=== PATIENT | male | born 1980 | race Caucasian/White ===

== ENCOUNTER 2017-09-06 13:40 | Emergency (ER) | payer MEDICARE, SELFPAY ==
[2017-09-06 13:42] VITALS: BP 164/111; PULSE 111; RESP 18; TEMP 36.9; O2SAT 98; BMI 38.1
--- NOTE | 2017-09-06 14:53 | ED.VISSUMM ---
- ER Visit Summary Date of Service: 09/06/17 Chief Complaint: Right arm pain History of Present Illness: The patient is a 37 M who states that on August 11 he woke up with right arm numbness. He went to [facility] was told that he had this possible C7 fracture was placed in a c-collar. 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 He went back to [facility] and they were close. 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 He had seen neurosurgery and went to another follow-up appointment today where he was told that that surgeon will not see him and he needs to find another neurosurgical group. He states he was given no explanation for why this occurred. He left that appointment and came right to [facility]. He lives in [place]. He states he does not want to go anywhere in [place] or [place]. He states that he is also out of his gabapentin which was not working anyway. He states that he cannot take anti-inflammatories tramadol or aspirin. He cannot take Toradol. Physical Examination: Afebrile vital signs are stable Gen: Well-nourished well-developed Head: Normocephalic atraumatic Eyes: Perrl EOMI ENT: TMs clear no rhinorrhea moist mucous membranes Neck: Supple no lymphadenopathy no JVD planes of tenderness to palpation in the paraspinal musculature CVS: Regular rate rhythm no murmurs normal S1-S2 Respiratory: No distress clear to auscultation bilaterally chest nontender Abdomen: Soft nontender nondistended normal bowel sounds no masses Back: Nontender Extremity: Nontender no edema Skin: Normal color no rash Neuro: alert orientated ?3 CN II-XII intact normal strength reflexes gait cerebellar patient is observed moving the arm in all directions. He reports decreased sensation diffusely in no particular dermatome. Psych: Agitated Emergency Department Course and Treatment: I explained to the patient that we did not have neurosurgery at this hospital. I explained to him that we may have a spine surgeon that comes to town during the week. Otherwise he would need to follow-up with a neurosurgeon in [place] or in [place]. I explained to him that as this problem is not acute or emergent I do not feel comfortable writing for narcotics. I also expressed my concern that there must be more to the story as to why all of a sudden he can no longer see his neurosurgeon. Patient states that he would rather just be discharged and have me spend any more time with him that somebody else could have his bed. He then left the emergency department before he can get his discharge paperwork. Impression: 1. Cervical radiculopathy This note was generated with [employer] dictation software. It may contain incorrect words, spelling, and punctuation that were not noted in review of the chart prior to signing ED Disposition - Plan for ED Patient: Disposition: Home or Assisted Living Chief Complaint: Back Instructions: ED Cervical Radiculopathy Referrals: Care Physician,No Primary [Primary Care Provider] - Additional Instructions: You need to establish care with a neurosurgeon. If you do not wish a neurosurgeon in [facility] then you will need to look towards [place] or [place].
== END 2017-09-06 15:19 | disposition home or self-care (01) ==
PROVIDERS: Emergency Provider Emergency Medicine
DX: M54.12 Radiculopathy, cervical region (principal); Z72.0 Tobacco use
CPT/HCPCS: 99282